=== PATIENT | male | born 1950 | race Caucasian/White ===

== ENCOUNTER 2017-01-11 22:07 | Inpatient (IN) | payer OTHER ==
--- NOTE | 2017-01-11 22:16 | EDPHY ---
H & P Stated Complaint: n/v malaise Source: Patient - Personal History Current Tetanus/Diphtheria Vaccine: Yes Current Tetanus Diphtheria and Acellular Pertussis (TDAP): Yes - Medical/Surgical History Hx Asthma: No Hx Chronic Respiratory Disease: No Hx Diabetes: No Hx Cardiac Disease: No Hx Renal Disease: No Hx Cirrhosis: No Hx Alcoholism: No Hx HIV/AIDS: No Hx Splenectomy or Spleen Trauma: No Other PMH: hypothyroid, inguinal hernia repair - Social History Smoking Status: Never smoked HPI/ROS: HPI CHIEF COMPLAINT: Abdominal pain, n/v HISTORY OF PRESENT ILLNESS: This patient very pleasant 66-year-old male, does have significant past medical history for thyroid disease, otherwise healthy does not take any daily medications except thyroid medicine, presents emergency room with nausea vomiting and abdominal pain. Patient states that around noon today he developed some lower abdominal discomfort he describes that as crampy. Fullness. He has had nausea and 2 episodes of vomiting prior to arrival. He has had progression of abdominal pain symptoms throughout the day. The pain is now getting worse. He denies fever. Denies urinary symptoms denies back pain. Denies chest pain or shortness of breath. Currently pain is 7/10 lower abdomen worse on the right side than left side. Past Medical History: Thyroid disease Past Surgical History: Inguinal hernia repair Social History: Denies daily use of drugs alcohol tobacco products. Family History: Noncontributory ROS REVIEW OF SYSTEMS: A comprehensive 10 point review of systems is otherwise negative aside from elements mentioned in the history of present illness. Exam Constitutional appears well nontoxic triage nursing summary reviewed, vital signs reviewed, awake/alert. Eyes normal conjunctivae and sclera, EOMI, PERRLA. HENT normal inspection, atraumatic, moist mucus membranes, no epistaxis, neck supple/ no meningismus, no raccoon eyes. Respiratory clear to auscultation bilaterally, normal breath sounds, no respiratory distress, no wheezing. Cardiovascular rate normal, regular rhythm, no murmur, no edema, distal pulses normal. Gastrointestinal soft, mild tender palpation suprapubic and right lower quadrant pain , no rebound, no guarding, normal bowel sounds, no distension, no pulsatile mass. Genitourinary no CVA tenderness. Musculoskeletal no midline vertebral tenderness, full range of motion, no calf swelling, no tenderness of extremities, no meningismus, good pulses, neurovascularly intact. Skin pink, warm, & dry, no rash, skin atraumatic. Neurologic awake, alert and oriented x 3, AAOx3, moves all 4 extremities equally, motor intact, sensory intact, CN II-XII intact, normal cerebellar, normal vision, normal speech. Psychiatric normal mood/affect. Heme/Lymph/Immune no lymphadenopathy. Differential diagnosis includes but is not limited to and in no particular order : Bowel obstruction, appendicitis, gallbladder disease, diverticulitis, colitis , enteritis, perforated viscus, gastritis, GERD, esophagitis, urinary tract infection, pyelonephritis, kidney stones Medical Decision Making: Plan for this patient IV established with IV fluid bolus 0.5 mg IV Dilaudid for pain control 4 mg IV Zofran for nausea, KUB to rule out bowel gas obstruction, and then most likely proceed with CT scan abdomen pelvis with IV contrast to delineate lower abdominal pain. Lactic acid. Re-evaluation: 2323: Re-evaluation at this time patient resting comfortably. CT scan shows small this bowel obstruction. Mid to distal ileum. High-grade small-bowel obstruction. Surgery be notified. Patient's risk factor for small-bowel obstructions previous abdominal surgery bilateral inguinal hernia repair. 2358: This patient is NG tube placed. At this time. 250 cc of gastric contents have been removed. Additionally I have consult Dr. CHAPO Shahid at this time. Reason for consult small-bowel obstruction. Dr. CHAPO Shahid has agreed to admit this patient. The patient remains hemodynamically stable not vomiting. Does not appear ill. (Christoph Rosales) Constitutional: Initial Vital Signs Temperature (C) 36.5 C 01/11/17 22:12 Heart Rate 66 01/11/17 22:12 Respiratory Rate 16 01/11/17 22:12 Blood Pressure 130/84 H 01/11/17 22:12 O2 Sat (%) 96 01/11/17 22:12 O2 Delivery Mode Room Air O2 (L/minute) 4 Allergies/Adverse Reactions: No Known Allergies Allergy (Unverified 01/11/17 22:12) Home Medications: Medication Instructions Recorded Levothyroxine 01/11/17 - Diagnostics Imaging Results: Imaging Impressions Abdomen CT 01/11/17 22:23 Impression: 1. High-grade distal small bowel obstruction with possible true transition points in the ileum. 2. No drainable abscesses or pneumoperitoneum. Findings and recommendations discussed with Emergency Department physician, Christoph Rosales MD at 23:25 hour, 01/11/2017. Final report concurs with initial preliminary interpretation. Abdomen X-Ray 01/11/17 22:23 Impression: Suspect small bowel obstruction. - Data Points Laboratory Results: Laboratory Results 01/11/17 22:10 01/11/17 22:10 01/11/17 01/11/17 01/11/17 22:20 22:10 22:10 WBC RBC Hgb Hct MCV MCH MCHC RDW Plt Count MPV Neut % (Auto) Lymph % (Auto) [facility] % (Auto) Eos % (Auto) Baso % (Auto) Nucleat RBC Rel Count Absolute Neuts (auto) Absolute Lymphs (auto) Absolute Monos (auto) Absolute Eos (auto) Absolute Basos (auto) Absolute Nucleated RBC Immature Gran % Immature Gran # PT 12.3 SEC SEC (12.0-15.0) INR 0.92 (0.83-1.16) APTT 23.4 SEC SEC (23.0-38.0) VBG Lactic Acid 1.6 mmol/L mmol/L (0.7-2.1) Sodium 135 mEq/L mEq/L (134-144) Potassium 4.5 mEq/L mEq/L (3.5-5.2) Chloride 98 mEq/L mEq/L (97-110) Carbon Dioxide 23 mEq/l mEq/l (22-31) Anion Gap 14 mEq/L mEq/L (8-16) BUN 19 mg/dL mg/dL (7-23) Creatinine 1.1 mg/dL mg/dL (0.7-1.3) Estimated GFR > 60 Glucose 167 mg/dL H mg/dL (70-100) Calcium 10.2 mg/dL mg/dL (8.5-10.4) Total Bilirubin 1.2 mg/dL mg/dL (0.1-1.4) Conjugated Bilirubin 0.3 mg/dL mg/dL (0.0-0.5) Unconjugated Bilirubin 0.9 mg/dL mg/dL (0.0-1.1) AST 31 IU/L IU/L (17-59) ALT 43 IU/L IU/L (21-72) Alkaline Phosphatase 105 IU/L IU/L (38-126) Total Protein 8.3 g/dL H g/dL (6.3-8.2) Albumin 5.0 g/dL g/dL (3.5-5.0) Lipase 184 IU/L IU/L (23-300) 01/11/17 22:10 WBC 13.49 10^3/uL H 10^3/uL (3.80-9.50) RBC 5.42 10^6/uL 10^6/uL (4.40-6.38) Hgb 17.3 g/dL g/dL (13.7-17.5) Hct 49.6 % % (40.0-51.0) MCV 91.5 fL fL (81.5-99.8) MCH 31.9 pg pg (27.9-34.1) MCHC 34.9 g/dL g/dL (32.4-36.7) RDW 12.1 % % (11.5-15.2) Plt Count 240 10^3/uL 10^3/uL (150-400) MPV 10.2 fL fL (8.7-11.7) Neut % (Auto) 82.7 % H % (39.3-74.2) Lymph % (Auto) 9.8 % L % (15.0-45.0) [facility] % (Auto) 6.1 % % (4.5-13.0) Eos % (Auto) 0.6 % % (0.6-7.6) Baso % (Auto) 0.3 % % (0.3-1.7) Nucleat RBC Rel Count 0.0 % % (0.0-0.2) Absolute Neuts (auto) 11.16 10^3/uL H 10^3/uL (1.70-6.50) Absolute Lymphs (auto) 1.32 10^3/uL 10^3/uL (1.00-3.00) Absolute Monos (auto) 0.82 10^3/uL H 10^3/uL (0.30-0.80) Absolute Eos (auto) 0.08 10^3/uL 10^3/uL (0.03-0.40) Absolute Basos (auto) 0.04 10^3/uL 10^3/uL (0.02-0.10) Absolute Nucleated RBC 0.00 10^3/uL 10^3/uL (0-0.01) Immature Gran % 0.5 % % (0.0-1.1) Immature Gran # 0.07 10^3/uL 10^3/uL (0.00-0.10) PT INR APTT VBG Lactic Acid Sodium Potassium Chloride Carbon Dioxide Anion Gap BUN Creatinine Estimated GFR Glucose Calcium Total Bilirubin Conjugated Bilirubin Unconjugated Bilirubin AST ALT Alkaline Phosphatase Total Protein Albumin Lipase Medications Given: Discontinued Medications Hydromorphone HCl (Dilaudid) 0.5 mg IVP EDNOW ONE Stop: 01/11/17 22:23 Last Admin: 01/11/17 22:29 Dose: 0.5 mg Sodium Chloride (Ns) 1,000 mls @ 0 mls/hr IV EDNOW ONE; Wide Open PRN Reason: Protocol Stop: 01/11/17 22:23 Last Admin: 01/11/17 22:29 Dose: 1,000 mls Ondansetron HCl (Zofran) 4 mg IVP EDNOW ONE Stop: 01/11/17 22:23 Last Admin: 01/11/17 22:29 Dose: 4 mg Departure - Departure Disposition: [facility] Inpatient Acute Clinical Impression: Small bowel obstruction Condition: Fair Referrals: Valdez Whitney MD [Primary Care Provider] - As per Instructions
[2017-01-11] MEDS ORDERED: HYDROmorphONE/DILAUDID 1 MG/ML INJ IVP ONE ×2 (22:22→23:58)
[2017-01-11] MEDS ORDERED: ONDANSETRON 4 MG/2 ML VIAL IVP ONE (22:22)
[2017-01-11] MEDS ORDERED: NS 1,000 ML IV ONE (22:22)
[2017-01-11 22:34] LABS: % IMMATURE GRANULYOCYTES 0.5 % (0.0-1.1); ABSOLUTE IMMATURE GRANULOCYTES 0.07 10^3/uL (0.00-0.10); ADD DIFF? NO; ADD MORPH? NO; ADD SCAN? NO; ATYPICAL LYMPHOCYTE FLAG 0 (0-99); FRAGMENT RBC FLAG 0 (0-99); HEMATOCRIT 49.6 % (40.0-51.0); HEMOGLOBIN 17.3 g/dL (13.7-17.5); LEFT SHIFT FLG 0 (0-99); LIPEMIA HEMOLYSIS FLAG 90 (0-99); MEAN CELL HEMOGLOBIN 31.9 pg (27.9-34.1); MEAN CELL HEMOGLOBIN CONCENTR. 34.9 g/dL (32.4-36.7); MEAN CELL VOLUME 91.5 fL (81.5-99.8); MEAN PLATELET VOLUME 10.2 fL (8.7-11.7); PLATELET CLUMPS FLAG 10 (0-99); PLATELET COUNT 240 10^3/uL (150-400); RED BLOOD CELL COUNT 5.42 10^6/uL (4.40-6.38); RED CELL DISTRIBUTION WIDTH 12.1 % (11.5-15.2)
[2017-01-11 22:43] LABS: INR 0.92 (0.83-1.16); PROTIME(PATIENT) 12.3 SEC (12.0-15.0)
[2017-01-11 22:44] LABS: APTT 23.4 SEC (23.0-38.0)
[2017-01-11 22:47] LABS: ALANINE AMINOTRANSFERASE 43 IU/L (21-72); ALKALINE PHOSPHATASE 105 IU/L (38-126); ANION GAP 14 mEq/L (8-16); ASPARTATE AMINOTRANSFERASE 31 IU/L (17-59); BILIRUBIN,TOTAL 1.2 mg/dL (0.1-1.4); BILIRUBIN-CONJUGATED 0.3 mg/dL (0.0-0.5); BILIRUBIN-UNCONJUGATED 0.9 mg/dL (0.0-1.1); CALCIUM 10.2 mg/dL (8.5-10.4); CARBON DIOXIDE 23 mEq/l (22-31); CHLORIDE 98 mEq/L (97-110); CREATININE 1.1 mg/dL (0.7-1.3); GLOMERULAR FILTRATION RATE > 60; GLUCOSE 167 mg/dL (70-100); POTASSIUM 4.5 mEq/L (3.5-5.2); SODIUM 135 mEq/L (134-144); TOTAL PROTEIN 8.3 g/dL (6.3-8.2)
[2017-01-12] MEDS: D5W 1/2 NS 1,000 ML IV SCH ×3 (02:48→20:10)
[2017-01-12] MEDS: HYDROmorphONE/DILAUDID 1 MG/ML INJ IVP PRN ×4 (02:48→20:45)
--- NOTE | 2017-01-12 03:45 | SOAPPROG ---
[facility] Progress Note Assessment/Plan: Assessment: 66-year-old male presents with 12 hours of abdominal cramping and some vomiting and a CT scan demonstrating a small bowel obstruction His only abdominal surgery was a laparoscopic hernia repair 5 years ago/he has had no recent trauma, diverticulitis or other abdominal problems and no melena or hematochezia No known allergies/medications are levothyroxine/review of systems is negative for any major medical problems/past medical history is is only a lap hernia General: Healthy 66-year-old male in some discomfort, afebrile HEENT nonicteric without adenopathy or oral lesions Chest clear Cor regular rhythm without murmurs Abdomen soft slightly distended, nontender, without hernias Extremities are benign Impression small bowel obstruction of uncertain etiology Plan: Observation with IV and NG tube/high likelihood of requiring surgery/ risks and options fully discussed the patient and his 01/12/17 03:41 Objective: Vital Signs Temp Pulse Resp BP Pulse Ox 36.7 C 98 18 143/90 H 93 01/12/17 01:36 01/12/17 01:36 01/12/17 01:36 01/12/17 01:36 01/12/17 01:36 01/10/17 01/11/17 01/12/17 05:59 05:59 05:59 Intake Total 1000 Output Total 700 Balance 300 PT 12.3 SEC (12.0-15.0) 01/11/17 22:10 INR 0.92 (0.83-1.16) 01/11/17 22:10 ICD10 Worksheet Patient Problems: Problems Problem Status Onset Small bowel obstruction Acute
--- NOTE | 2017-01-12 04:50 | GHP ---
[f rep st] PREOP HISTORY AND PHYSICAL DATE OF ADMISSION: 01/11/2017 HISTORY OF PRESENT ILLNESS: A 66-year-old male is admitted at this time with small bowel obstruction demonstrated on CT scan. He has had less than 12 hours of crampy abdominal pain, and some emesis on the way to the hospital. He has had no recent abdominal trauma or inflammatory processes. No evide nce of bleeding. His only previous abdominal surgery was a laparoscopic hernia repair over 5 years a go. PAST MEDICAL HISTORY: Includes hypothyroidism. ALLERGIES: None. MEDICATIONS: Levothyroxine. FAMILY HISTORY: Noncontributory. REVIEW OF SYSTEMS: Negative on a full 10-point review of systems. Specifically does not smoke or whatley ve any major cardiopulmonary symptoms, diabetes, or other major medical problems. PHYSICAL EXAM: GENERAL: A healthy 66-year-old male who is in some discomfort, afebrile. HEENT: Wi thout adenopathy or thyromegaly, PERRLA, no oral lesions. CHEST: Clear to auscultation bilaterally. COR: Regular rhythm without murmurs. ABDOMEN: Soft, not particularly tender, slightly distended with no hernias and no masses. GENITALIA: Normal. EXTREMITIES: Benign with full pulses. SKIN: N egative for any major lesions. MUSCULOSKELETAL: Reveals no adenopathy or other abnormalities. IMPRESSION: Small bowel obstruction of uncertain etiology. PLAN: Admit for IV fluids, NG suction and observation. High likelihood of surgery. Risks and optio ns fully discussed. /[id number]/MODL
[2017-01-12 09:01] LABS: COLOR YELLOW; LEUKOCYTE ESTERASE,URINE NEGATIVE (NEGATIVE); NITRITE,URINE NEGATIVE (NEGATIVE)
--- NOTE | 2017-01-12 12:53 | SOAPPROG ---
[facility] Progress Note Assessment/Plan: Assessment: 66-year-old male presents with 12 hours of abdominal cramping and some vomiting and a CT scan demonstrating a small bowel obstruction His only abdominal surgery was a laparoscopic hernia repair 5 years ago/he has had no recent trauma, diverticulitis or other abdominal problems and no melena or hematochezia No known allergies/medications are levothyroxine/review of systems is negative for any major medical problems/past medical history is is only a lap hernia General: Healthy 66-year-old male in some discomfort, afebrile HEENT nonicteric without adenopathy or oral lesions Chest clear Cor regular rhythm without murmurs Abdomen soft slightly distended, nontender, without hernias Extremities are benign Impression small bowel obstruction of uncertain etiology Plan: Observation with IV and NG tube/high likelihood of requiring surgery/ risks and options fully discussed the patient and his 01/12/17 03:41 01/12/17 12:51 FOLLOW-UP WITH SMALL BOWEL OBSTRUCTION/ACTUALLY IMPROVING FROM A PAIN STANDPOINT /STILL DISTENDED BUT NONTENDER/NEGATIVE FLATUS 2 WAY X-RAY IS PENDING/OVERALL IMPROVING BUT STILL APPEARS TO BE OBSTRUCTED/NG DRAINAGE IS MINIMIZED Objective: Vital Signs Temp Pulse Resp BP Pulse Ox 36.4 C 67 16 117/76 92 01/12/17 11:47 01/12/17 11:47 01/12/17 11:47 01/12/17 11:47 01/12/17 11:47 01/11/17 01/12/17 01/13/17 05:59 05:59 05:59 Intake Total 1523 Output Total 700 Balance 823 PT 12.3 SEC (12.0-15.0) 01/11/17 22:10 INR 0.92 (0.83-1.16) 01/11/17 22:10 ICD10 Worksheet Patient Problems: Problems Problem Status Onset Small bowel obstruction Acute
[2017-01-12] MEDS: ONDANSETRON 4 MG/2 ML VIAL IVP PRN (20:21)
[2017-01-13] MEDS: HYDROmorphONE/DILAUDID 1 MG/ML INJ IVP PRN (01:33)
--- NOTE | 2017-01-13 11:48 | SOAPPROG ---
J[facility] Progress Note Assessment/Plan: Assessment: 66-year-old male presents with 12 hours of abdominal cramping and some vomiting and a CT scan demonstrating a small bowel obstruction His only abdominal surgery was a laparoscopic hernia repair 5 years ago/he has had no recent trauma, diverticulitis or other abdominal problems and no melena or hematochezia No known allergies/medications are levothyroxine/review of systems is negative for any major medical problems/past medical history is is only a lap hernia General: Healthy 66-year-old male in some discomfort, afebrile HEENT nonicteric without adenopathy or oral lesions Chest clear Cor regular rhythm without murmurs Abdomen soft slightly distended, nontender, without hernias Extremities are benign Impression small bowel obstruction of uncertain etiology Plan: Observation with IV and NG tube/high likelihood of requiring surgery/ risks and options fully discussed the patient and his 01/12/17 03:41 01/12/17 12:51 FOLLOW-UP WITH SMALL BOWEL OBSTRUCTION/ACTUALLY IMPROVING FROM A PAIN STANDPOINT /STILL DISTENDED BUT NONTENDER/NEGATIVE FLATUS 2 WAY X-RAY IS PENDING/OVERALL IMPROVING BUT STILL APPEARS TO BE OBSTRUCTED/NG DRAINAGE IS MINIMIZED 01/13/17 11:47 AFEBRILE/VITAL SIGNS STABLE/ABDOMEN SOFTER/2 WAY ABDOMEN NONDIAGNOSTIC/LARGE NG OUTPUT BUT POSSIBLY CONTAINING AND CLEAR LIQUIDS/BM THIS MORNING PLAN CLAMP NG AND START CLEAR LIQUIDS/MAIN NEED A SMALL-BOWEL FOLLOW-THROUGH X- RAY WELL Objective: Vital Signs Temp Pulse Resp BP Pulse Ox 36.3 C 65 18 124/76 H 92 01/13/17 08:16 01/13/17 08:16 01/13/17 08:16 01/13/17 08:16 01/13/17 08:16 01/12/17 01/13/17 01/14/17 05:59 05:59 05:59 Intake Total 1523 3585 Output Total 700 835 Balance 823 2750 PT 12.3 SEC (12.0-15.0) 01/11/17 22:10 INR 0.92 (0.83-1.16) 01/11/17 22:10 ICD10 Worksheet Patient Problems: Problems Problem Status Onset Small bowel obstruction Acute
[2017-01-13] MEDS: D5W 1/2 NS 1,000 ML IV SCH ×2 (11:53→18:25)
--- NOTE | 2017-01-13 15:08 | ASMTCMCOM ---
CM Note CM Note Notes: Pt here w/SBO. D/W RN; pt improving. He will likely dc home w/ without CM needs if he does not need surgery. CIRILO w/f. Date Signed: 01/13/2017 03:07 PM Electronically Signed By:Cathy Villegas RN
[2017-01-14] MEDS: D5W 1/2 NS 1,000 ML IV SCH (00:09)
[2017-01-14 07:36] VITALS: RESP 15
[2017-01-14] MEDS: ONDANSETRON 4 MG/2 ML VIAL IVP PRN (08:50)
--- NOTE | 2017-01-14 09:02 | SOAPPROG ---
SOAP Progress Note Assessment/Plan: Assessment: 66 yo male admitted for abdominal pain and vomiting found to have a small bowel obstruction that is improving with nonsurgical measures. XR today demonstrating mildly dilated loops of bowel NGT removed Small bowel follow through today Clear diet Cont pain control S: Pt feeling well today. Tolerating sips of clears with NGT clamped. Denies f/c /n/v. Passing gas. O: Pt sitting up in chair, NAD MMM No increased WOB Abd soft, non distended, no peritoneal signs NGT clamped and off suction Objective: Vital Signs Temp Pulse Resp BP Pulse Ox 36.7 C 65 15 133/88 H 93 01/14/17 07:36 01/14/17 07:36 01/14/17 07:36 01/14/17 07:36 01/14/17 07:36 01/13/17 01/14/17 01/15/17 05:59 05:59 05:59 Intake Total 1659 Output Total 120 Balance 1539 PT 12.3 SEC (12.0-15.0) 01/11/17 22:10 INR 0.92 (0.83-1.16) 01/11/17 22:10 ICD10 Worksheet Patient Problems: Problems Problem Status Onset Small bowel obstruction Acute
[2017-01-14 15:16] VITALS: BP 131/81; PULSE 70; TEMP 97.5; O2SAT 95
== END 2017-01-14 17:41 | disposition home or self-care (01) | DRG 328 ==
LOC: INTOOBSV 23:53 → F1N 01-12 01:25 → OBSVTOIN 01-13 12:05
PROVIDERS: ADMIT Surgery; ATTEND Surgery
PROC: 3E0337Z Introduction of Electrolytic and Water Balance Substance into Peripheral Vein, Percutaneous Approach (ICD-10-PCS; principal; 2017-01-13)
PROC: 0D967ZZ Drainage of Stomach, Via Natural or Artificial Opening (ICD-10-PCS; principal; 2017-01-13)
DX: K56.69 Other intestinal obstruction (principal); E03.9 Hypothyroidism, unspecified
CPT/HCPCS: 96374; G0378; J1170; J2405